=== PATIENT | female | born 1965 | race Caucasian/White ===

== ENCOUNTER 2018-10-16 17:40 | Emergency (ER) | payer OTHER ==
--- OUTSIDE RECORDS SUMMARY | 2018-10-16 17:53 | XMS REPORT | Continuity of Care Document ---
:1965 External Reference #:[id number] Author Name Tai Coombs DO MPH Address [address] [place] [address], [address] [place] [address] Care Team Providers Name Role Phone Devin Back M.D. Care Team Information Can Line Operator Unavailable Devin Back M.D. Primary Care Physician Unavailable Payers Date Identification Numbers Payment Provider Subscriber Policy Number: [id number] For Life Angeles Dos Santos PayID: [id number] [address] [place] [address] Family History Date Family Member(s) Observation Comments Father due to COPD () Mother 70 Children 4 Social History Type Date Description Comments Sex Unknown Education Currently working on Associates Degree Lives With Spouse Lives With Daughters Sleep Typically sleeps 6 hours a night Pets 2 dogs Pets 3 cats Occupation Unemployed Work Status Not Currently Working Hand Dominance Right-handed Cigarette Use Current Cigarette Smoker 1-5 Cigarettes Daily ETOH Use Denies alcohol use Tobacco Use Start: Unknown Patient is a current smoker, smokes some days Smoking Status Reviewed: 10/03/18 Patient is a current smoker, smokes some days Smoke Alarms Yes smoke alarm Allergies, Adverse Reactions, Alerts Active Allergies Reaction Severity Comments Date Zoloft 07/20/2016 Medications Active Medications SIG Qnty Indications Ordering Date Provider Cyclobenzaprine HCL 1 by mouth every 30tabs Tai Coombs, 04/01/2018 10mg night as DO, MPH Tablets directed Oxycodone HCL si by mouth 100tabs Tai Coombs, 12/31/2017 5mg Tablets every 4 to 6 DO, MPH hours as directed chronic pain patient Multiple Unknown Vitamin/Minerals/No Iron Tablets Tumeric 1 By Mouth Daily Unknown Capsules Famotidine si by mouth Unknown 20mg Tablets twice a day as directed Iron 100/C 1 by mouth daily Unknown 100-250mg Tablets History Medications Oxycodone HCL si by mouth 90tabs Tai Coombs, 07/20/2016 - 5mg every 8 hours as VELIA MCCLOUD 12/31/2017 Tablets directed chronic pain patient. Ventolin HFA 2 puffs as needed Unknown - every 8 hours for 07/20/2016 108(90Base) mcg/Act shortness for Aerosol breath Hydrocodone-Acetamino take one by mouth Unknown - phen every 6 hours as 07/20/2016 7.5-325mg Tablets directed chronic pain. fill under workman's compensation. Ibuprofen si po q4h 120tabs Unknown - 600mg Tablets 04/01/2018 Amoxicillin si by mouth Unknown - 500mg three times a day 08/17/2016 Tablets Vital Signs Date Vital Result Comment 10/03/2018 3:56pm BP Systolic 132 mmHg BP Diastolic 80 mmHg Heart Rate 84 /min Respiratory Rate 20 /min Height 58 inches 4'10" Weight 171.00 lb Pain Level 9 Pain at this time. Pain Level With Medicine 8 on average with meds Pain Level Without Medicine 9 02/20 without meds Pain Level After Procedure 7 BP Systolic Recheck 140 mmHg Pulse: 80 BP Diastolic Recheck 86 mmHg Pulse: 80 BMI (Body Mass Index) 35.7 kg/m2 09/02/2018 3:55pm BP Systolic 128 mmHg BP Diastolic 78 mmHg Heart Rate 74 /min Respiratory Rate 20 /min Height 58 inches 4'10" Weight 172.00 lb Pain Level 7 Pain at this time. Pain Level With Medicine 6 on average with meds Pain Level Without Medicine 9 without meds BMI (Body Mass Index) 35.9 kg/m2 07/31/2018 3:47pm BP Systolic 128 mmHg BP Diastolic 82 mmHg Heart Rate 80 /min Respiratory Rate 20 /min Height 58 inches 4'10" Weight 172.00 lb Pain Level 8 Pain at this time. Pain Level With Medicine 6 on average with meds Pain Level Without Medicine 10 02/20 without meds BMI (Body Mass Index) 35.9 kg/m2 06/26/2018 3:23pm BP Systolic 126 mmHg BP Diastolic 78 mmHg Heart Rate 74 /min Respiratory Rate 20 /min Height 58 inches 4'10" Weight 172.00 lb Pain Level 8 Pain at this time. Pain Level With Medicine 7 on average with meds Pain Level Without Medicine 10 02/20 without meds BMI (Body Mass Index) 35.9 kg/m2 05/28/2018 3:31pm BP Systolic 130 mmHg BP Diastolic 78 mmHg Heart Rate 72 /min Respiratory Rate 20 /min Height 58 inches 4'10" Weight 172.00 lb Pain Level 7 Pain at this time. Pain Level With Medicine 6 on average with meds Pain Level Without Medicine 10 02/20 without meds Pain Level After Procedure 5 BP Systolic Recheck 132 mmHg Pulse: 74 BP Diastolic Recheck 84 mmHg Pulse: 74 BMI (Body Mass Index) 35.9 kg/m2 04/29/2018 3:54pm BP Systolic 128 mmHg BP Diastolic 80 mmHg Heart Rate 74 /min Respiratory Rate 20 /min Height 58 inches 4'10" Weight 171.00 lb Pain Level 7 Pain at this time. Pain Level With Medicine 6 on average with meds Pain Level Without Medicine 10 02/20 without meds BMI (Body Mass Index) 35.7 kg/m2 04/01/2018 3:28pm BP Systolic 122 mmHg BP Diastolic 74 mmHg Heart Rate 76 /min Respiratory Rate 20 /min Height 58 inches 4'10" Weight 170.00 lb Pain Level 7 Pain at this time. Pain Level With Medicine 7 on average with meds Pain Level Without Medicine 10 02/20 without meds BMI (Body Mass Index) 35.5 kg/m2 02/27/2018 3:32pm BP Systolic 128 mmHg BP Diastolic 84 mmHg Heart Rate 86 /min Respiratory Rate 20 /min Height 58 inches 4'10" Weight 170.00 lb Pain Level 9 Pain at this time. Pain Level With Medicine 7 on average with meds Pain Level Without Medicine 10 02/20 without meds Pain Level After Procedure 6 BP Systolic Recheck 132 mmHg Pulse: 94 BP Diastolic Recheck 88 mmHg Pulse: 94 BMI (Body Mass Index) 35.5 kg/m2 01/30/2018 3:38pm BP Systolic 130 mmHg BP Diastolic 84 mmHg Heart Rate 80 /min Respiratory Rate 20 /min Height 58 inches 4'10" Weight 170.00 lb Pain Level 9 Pain at this time. Pain Level With Medicine 8 on average with meds Pain Level Without Medicine 10 02/20 without meds BMI (Body Mass Index) 35.5 kg/m2 12/31/2017 3:48pm BP Systolic 122 mmHg BP Diastolic 72 mmHg Heart Rate 74 /min Respiratory Rate 20 /min Height 58 inches 4'10" Weight 178.00 lb Pain Level 7 Pain at this time. Pain Level With Medicine 6 on average with meds Pain Level Without Medicine 10 02/20 without meds BMI (Body Mass Index) 37.2 kg/m2 11/28/2017 3:56pm BP Systolic 120 mmHg BP Diastolic 74 mmHg Heart Rate 76 /min Respiratory Rate 20 /min Height 58 inches 4'10" Pain Level 6 Pain at this time. Pain Level With Medicine 6 on average with meds Pain Level Without Medicine 10 02/20 without meds 10/29/2017 3:47pm Respiratory Rate 20 /min Height 58 inches 4'10" Weight 182.00 lb Pain Level Without Medicine 10 02/20 without meds BMI (Body Mass Index) 38.0 kg/m2 10/03/2017 3:57pm BP Systolic 120 mmHg BP Diastolic 74 mmHg Heart Rate 76 /min Respiratory Rate 20 /min Height 58 inches 4'10" Weight 182.00 lb Pain Level 5 Pain at this time. Pain Level With Medicine 4 on average with meds Pain Level Without Medicine 10 02/20 without meds BMI (Body Mass Index) 38.0 kg/m2 08/27/2017 4:04pm BP Systolic 122 mmHg BP Diastolic 70 mmHg Heart Rate 74 /min Respiratory Rate 20 /min Height 58 inches 4'10" Weight 166.00 lb Pain Level 8 Pain at this time. Pain Level With Medicine 7 on average with meds Pain Level Without Medicine 10 02/20 without meds BMI (Body Mass Index) 34.7 kg/m2 07/25/2017 3:49pm BP Systolic 128 mmHg BP Diastolic 78 mmHg Heart Rate 74 /min Respiratory Rate 20 /min Height 58 inches 4'10" Weight 170.00 lb Pain Level 9 Pain at this time. Pain Level With Medicine 8 on average with meds Pain Level Without Medicine 10 02/20 without meds BMI (Body Mass Index) 35.5 kg/m2 06/25/2017 4:01pm BP Systolic 128 mmHg BP Diastolic 76 mmHg Heart Rate 74 /min Respiratory Rate 20 /min Height 58 inches 4'10" Weight 170.00 lb Pain Level 8 Pain at this time. Pain Level With Medicine 7 on average with meds Pain Level Without Medicine 10 02/20 without meds Pain Level After Procedure 6 BP Systolic Recheck 122 mmHg Pulse: 84 BP Diastolic Recheck 78 mmHg Pulse: 84 BMI (Body Mass Index) 35.5 kg/m2 05/29/2017 4:00pm BP Systolic 118 mmHg BP Diastolic 74 mmHg Heart Rate 72 /min Respiratory Rate 20 /min Height 58 inches 4'10" Weight 173.00 lb Pain Level 7 Pain at this time. Pain Level With Medicine 6 on average with meds Pain Level Without Medicine 10 02/20 without meds BMI (Body Mass Index) 36.2 kg/m2 04/25/2017 3:49pm BP Systolic 126 mmHg BP Diastolic 78 mmHg Heart Rate 80 /min Respiratory Rate 20 /min Height 58 inches 4'10" Weight 173.00 lb Pain Level 9 Pain at this time. Pain Level With Medicine 8 on average with meds Pain Level Without Medicine 10 02/20 without meds Pain Level After Procedure 7 BP Systolic Recheck 122 mmHg Pulse: 74 BP Diastolic Recheck 76 mmHg Pulse: 74 BMI (Body Mass Index) 36.2 kg/m2 03/28/2017 4:00pm BP Systolic 116 mmHg BP Diastolic 72 mmHg Heart Rate 74 /min Respiratory Rate 20 /min Height 58 inches 4'10" Weight 172.00 lb Pain Level 8 Pain at this time. Pain Level With Medicine 7 on average with meds Pain Level Without Medicine 10 02/20 without meds BMI (Body Mass Index) 35.9 kg/m2 02/26/2017 4:01pm BP Systolic 130 mmHg BP Diastolic 80 mmHg Heart Rate 72 /min Respiratory Rate 16 /min Height 58 inches 4'10" Weight 172.00 lb Pain Level 7 7/10, Pain at this time. Pain Level With Medicine 5 5/10, on average with meds Pain Level Without Medicine 10 02/20 without meds BMI (Body Mass Index) 35.9 kg/m2 01/16/2017 2:51pm BP Systolic 136 mmHg BP Diastolic 80 mmHg Heart Rate 76 /min Respiratory Rate 16 /min Height 58 inches 4'10" Weight 171.00 lb Pain Level 8 8/10, Pain at this time. Pain Level With Medicine 6 6/10, on average with meds Pain Level Without Medicine 10 02/20 without meds BMI (Body Mass Index) 35.7 kg/m2 12/19/2016 9:46am BP Systolic 136 mmHg BP Diastolic 80 mmHg Heart Rate 78 /min Respiratory Rate 16 /min Height 58 inches 4'10" Weight 170.00 lb Pain Level 8 8/10, Pain at this time. Pain Level With Medicine 6 6/10, on average with meds Pain Level Without Medicine 10 02/20 without meds BMI (Body Mass Index) 35.5 kg/m2 12/04/2016 3:07pm BP Systolic 122 mmHg BP Diastolic 70 mmHg Heart Rate 74 /min Respiratory Rate 20 /min Height 58 inches 4'10" Weight 171.00 lb Pain Level 7 Pain at this time. Pain Level With Medicine 6 on average with meds Pain Level Without Medicine 10 02/20 without meds Pain Level After Procedure 5 BP Systolic Recheck 128 mmHg Pulse: 76 BP Diastolic Recheck 74 mmHg Pulse: 76 BMI (Body Mass Index) 35.7 kg/m2 11/22/2016 3:20pm BP Systolic 138 mmHg BP Diastolic 80 mmHg Heart Rate 70 /min Respiratory Rate 16 /min Height 58 inches 4'10" Weight 175.00 lb Pain Level 6 6/10, Pain at this time. Pain Level With Medicine 6 610, on average with meds Pain Level Without Medicine 10 02/20 without meds BMI (Body Mass Index) 36.6 kg/m2 11/03/2016 12:42pm BP Systolic 128 mmHg BP Diastolic 78 mmHg Heart Rate 80 /min Respiratory Rate 20 /min Height 58 inches 4'10" Weight 167.00 lb Pain Level 7 Pain at this time. Pain Level With Medicine 6 on average with meds Pain Level Without Medicine 10 02/20 without meds Pain Level After Procedure 5 BP Systolic Recheck 122 mmHg Pulse: 74 BP Diastolic Recheck 72 mmHg Pulse: 74 BMI (Body Mass Index) 34.9 kg/m2 10/20/2016 2:19pm BP Systolic 128 mmHg BP Diastolic 70 mmHg Heart Rate 74 /min Respiratory Rate 18 /min Height 58 inches 4'10" Weight 167.00 lb Pain Level 7 Pain at this time. Pain Level With Medicine 6 on average with meds Pain Level Without Medicine 10 02/20 without meds BMI (Body Mass Index) 34.9 kg/m2 09/21/2016 2:13pm BP Systolic 126 mmHg BP Diastolic 70 mmHg Heart Rate 72 /min Respiratory Rate 20 /min Height 58 inches 4'10" Weight 173.00 lb Pain Level 7 Pain at this time. Pain Level With Medicine 6 on average with meds Pain Level Without Medicine 10 10/10 without meds BMI (Body Mass Index) 36.2 kg/m2 08/17/2016 2:42pm BP Systolic 126 mmHg BP Diastolic 80 mmHg Heart Rate 80 /min Respiratory Rate 16 /min Height 58 inches 4'10" Weight 169.00 lb Pain Level 5 5/10, Pain at this time. Pain Level With Medicine 5 5/10, on average with meds Pain Level Without Medicine 10 10/10 without meds BMI (Body Mass Index) 35.3 kg/m2 08/03/2016 3:25pm BP Systolic 140 mmHg BP Diastolic 80 mmHg Heart Rate 76 /min Respiratory Rate 16 /min Height 58 inches 4'10" Weight 170.00 lb Pain Level 3 3/10, Pain at this time. Pain Level With Medicine 3 3/10, on average with meds Pain Level Without Medicine 10 10/10 without meds BMI (Body Mass Index) 35.5 kg/m2 07/20/2016 3:14pm BP Systolic 124 mmHg BP Diastolic 78 mmHg Heart Rate 82 /min Respiratory Rate 20 /min Height 58 inches 4'10" Weight 170.00 lb Pain Level 6 6/10, Pain at this time. Pain Level With Medicine 6 6/10, on average with meds Pain Level Without Medicine 8 8/10 without meds BMI (Body Mass Index) 35.5 kg/m2 Procedures Date Code Description Status 06/26/2018 40224 Brief Emotional/Behav Assessment W/ Scoring Doc Per Completed Standard Inst 05/28/2018 96512 Injection For Nerve Block, Other Peripheral Nerve Or Completed Branch 05/28/201876012 Injection, Single Or Mutiple Trigger Points One Or Two Completed Muscles 05/28/201846239 Injection, Tendon Origin/Insertion Completed 05/28/201877752 Inject Tendon/Ligament Completed 02/27/2018 27012 Omt 3-4 Body Regions Completed 02/27/201839056 Arthrocentesis/Aspiration/Inj Of Major Joint Or Bursa W/ Completed Ultra 06/25/2017 83424 Omt 3-4 Body Regions Completed 06/25/2017 12154 Injection For Nerve Block, Other Peripheral Nerve Or Completed Branch 06/25/201793393 Injection, Single Or Mutiple Trigger Points One Or Two Completed Muscles 06/25/201767357 Injection, Tendon Origin/Insertion Completed 04/25/201754471 Inject Tendon/Ligament Completed 04/25/201765689 Inject Tendon/Ligament Completed 04/25/201798721 Inject Tendon/Ligament Completed 04/25/201774096 Inject Tendon/Ligament Completed 04/25/201701405 Injection, Tendon Origin/Insertion Completed 04/25/201747874 Injection, Tendon Origin/Insertion Completed 04/25/201722607 Injection, Single Or Mutiple Trigger Points One Or Two Completed Muscles 01/16/2017 07699 Therapeutic, Prophylactic Or Diagnostic Injection Subq/Im Completed 12/19/2016 13198 Therapeutic, Prophylactic Or Diagnostic Injection Subq/Im Completed 12/04/2016 95915 Injection For Nerve Block, Other Peripheral Nerve Or Completed Branch 11/22/2016 00747 Omt 3-4 Body Regions Completed 11/03/2016 48815 Injection For Nerve Block, Other Peripheral Nerve Or Completed Branch 11/03/201696905 Injection, Tendon Origin/Insertion Completed 11/03/2016 Injection, Tendon Origin/Insertion Completed Encounters Type Date Location Provider Dx Diagnosis Office Visit 09/02/2018 Main Office as Of Tai Coombs DO, G89.29 Other chronic pain 4:00p 06/14/13 MPH M54.16 Radiculopathy, lumbar region M54.6 Pain in thoracic spine M25.562 Pain in left knee M25.572 Pain in left ankle and joints of left foot 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 Office Visit 07/31/2018 4:15p Main Office as Tai Coombs G89.29 Other chronic Of 06/14/13 DO, MPH pain M54.16 Radiculopathy, lumbar region M54.6 Pain in thoracic spine M79.18 Myalgia, other site 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 Office Visit 06/26/2018 3:45p Main Office as Tai Coombs G89.29 Other chronic Of 06/14/13 DO, MPH pain M54.6 Pain in thoracic spine M54.16 Radiculopathy, lumbar region M79.18 Myalgia, other site Z13.31 Encounter for screening for depression Z79.891 assisted (current) use of opiate analgesic Office Visit 05/28/2018 3:30p Main Office as Tai Coombs G89.29 Other chronic Of 06/14/13 DO, MPH pain M54.6 Pain in thoracic spine M54.16 Radiculopathy, lumbar region M65.88 Other synovitis and tenosynovitis, other site M79.18 Myalgia, other site M46.07 Spinal enthesopathy, lumbosacral region Z79.891 assisted (current) use of opiate analgesic Office Visit 04/29/2018 3:45p Main Office as Tai Coombs G89.29 Other chronic Of 06/14/13 DO, MPH pain M54.6 Pain in thoracic spine M54.16 Radiculopathy, lumbar region 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 Office Visit 04/01/2018 3:30p Main Office as Tai Coombs G89.29 Other chronic Of 06/14/13 DO, MPH pain M54.6 Pain in thoracic spine M54.16 Radiculopathy, lumbar region M25.552 Pain in left hip M25.551 Pain in right hip 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 Office Visit 02/27/2018 4:00p Main Office as Tai Coombs G89.29 Other chronic Of 06/14/13 DO, MPH pain M54.6 Pain in thoracic spine M54.16 Radiculopathy, lumbar region M99.03 Segmental and somatic dysfunction of lumbar region M53.3 Sacrococcygeal disorders, not elsewhere classified M99.04 Segmental and somatic dysfunction of sacral region M25.552 Pain in left hip M25.551 Pain in right hip M99.05 Segmental and somatic dysfunction of pelvic region 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 Office Visit 01/30/2018 3:45p Main Office as Tai Coombs G89.29 Other chronic Of 06/14/13 DO, MPH pain M54.6 Pain in thoracic spine M54.16 Radiculopathy, lumbar region M54.5 Low back pain 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 Office Visit 12/31/2017 4:00p Main Office as Tai Coombs G89.29 Other chronic Of 06/14/13 DO, MPH pain M54.5 Low back pain M54.16 Radiculopathy, lumbar region M54.6 Pain in thoracic spine 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 Office Visit 11/28/2017 4:15p Main Office as Tai Coombs G89.29 Other chronic Of 06/14/13 DO, MPH pain M54.6 Pain in thoracic spine M54.5 Low back pain M54.16 Radiculopathy, lumbar region Z79.891 assisted (current) use of opiate analgesic Office Visit 10/29/2017 3:45p Main Office as Tai Coombs G89.29 Other chronic Of 06/14/13 DO, MPH pain M54.6 Pain in thoracic spine M54.5 Low back pain M54.16 Radiculopathy, lumbar region M65.88 Other synovitis and tenosynovitis, other site Z79.891 assisted (current) use of opiate analgesic Office Visit 10/03/2017 3:30p Main Office as Tai Coombs G89.29 Other chronic Of 06/14/13 DO, MPH pain M54.6 Pain in thoracic spine M54.5 Low back pain M54.16 Radiculopathy, lumbar region M79.1 Myalgia 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 Office Visit 08/27/2017 3:30p Main Office as Tai Coombs G89.29 Other chronic Of 06/14/13 DO, MPH pain M54.5 Low back pain M54.16 Radiculopathy, lumbar region M54.6 Pain in thoracic spine 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 Office Visit 07/25/2017 4:15p Main Office as Tai Coombs G89.29 Other chronic Of 06/14/13 DO, MPH pain M54.5 Low back pain M79.1 Myalgia M54.16 Radiculopathy, lumbar region Z79.891 assisted (current) use of opiate analgesic Office Visit 06/25/2017 3:30p Main Office as Tai Coombs G89.29 Other chronic Of 06/14/13 DO, MPH pain M54.5 Low back pain M79.1 Myalgia M65.88 Other synovitis and tenosynovitis, other site M46.07 Spinal enthesopathy, lumbosacral region M54.16 Radiculopathy, lumbar region M99.03 Segmental and somatic dysfunction of lumbar region M54.6 Pain in thoracic spine M99.02 Segmental and somatic dysfunction of thoracic region M25.551 Pain in right hip M99.05 Segmental and somatic dysfunction of pelvic region Z79.891 assisted (current) use of opiate analgesic Office Visit 05/29/2017 3:45p Main Office as Tai Coombs G89.29 Other chronic Of 06/14/13 DO, MPH pain M54.5 Low back pain M79.1 Myalgia Z79.891 assisted (current) use of opiate analgesic F17.210 Nicotine dependence, cigarettes, uncomplicated Office Visit 04/25/2017 3:45p Main Office as Tai Coombs G89.29 Other chronic Of 06/14/13 DO, MPH pain M51.26 Other intervertebral disc displacement, lumbar region M54.5 Low back pain M79.1 Myalgia M65.88 Other synovitis and tenosynovitis, other site M46.07 Spinal enthesopathy, lumbosacral region Z79.891 assisted (current) use of opiate analgesic Office Visit 03/28/2017 4:00p Main Office as Tai Coombs G89.29 Other chronic Of 06/14/13 DO, MPH pain M54.5 Low back pain M51.26 Other intervertebral disc displacement, lumbar region M54.16 Radiculopathy, lumbar region Z79.891 assisted (current) use of opiate analgesic Office Visit 02/26/2017 3:45p Main Office as Ena Griffin G89.29 Other chronic Of 06/14/13 [employer]IVE pain M51.26 Other intervertebral disc displacement, lumbar region M54.5 Low back pain M54.16 Radiculopathy, lumbar region Z79.891 assisted (current) use of opiate analgesic Office Visit 01/16/2017 2:15p Main Office as Ena Griffin G89.29 Other chronic Of 06/14/13 [employer]ENT [employer]IVE pain M54.5 Low back pain M48.06 Spinal stenosis, lumbar region M51.26 Other intervertebral disc displacement, lumbar region M54.16 Radiculopathy, lumbar region R53.83 Other fatigue Z71.89 Other specified counseling Z79.891 assisted (current) use of opiate analgesic Office Visit 12/19/2016 9:30a Main Office as Ena Griffin G89.29 Other chronic Of 06/14/13 [employer]ENT [employer]IM[employer]IVE pain M51.26 Other intervertebral disc displacement, lumbar region M48.06 Spinal stenosis, lumbar region M54.5 Low back pain M54.16 Radiculopathy, lumbar region R53.83 Other fatigue Z71.89 Other specified counseling 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 Office Visit 12/04/2016 3:00p Main Office as Tai Coombs G89.29 Other chronic Of 06/14/13 DO, MPH pain M51.26 Other intervertebral disc displacement, lumbar region M54.5 Low back pain M48.06 Spinal stenosis, lumbar region M54.16 Radiculopathy, lumbar region Z79.891 assisted (current) use of opiate analgesic Office Visit 11/22/2016 3:15p Main Office as Ena Griffin G89.29 Other chronic Of 06/14/13 VI[employer]ENT [employer]IM[employer]ECTIVE pain M51.26 Other intervertebral disc displacement, lumbar region M54.5 Low back pain M48.06 Spinal stenosis, lumbar region M54.16 Radiculopathy, lumbar region M99.03 Segmental and somatic dysfunction of lumbar region M54.6 Pain in thoracic spine M99.02 Segmental and somatic dysfunction of thoracic region M54.2 Cervicalgia M99.01 Segmental and somatic dysfunction of cervical region Z71.89 Other specified counseling Z79.891 assisted (current) use of opiate analgesic Office Visit 11/03/2016 2:15p Main Office as Tai Coombs G89.29 Other chronic Of 06/14/13 DO, MPH pain M54.5 Low back pain M51.26 Other intervertebral disc displacement, lumbar region Z98.84 Bariatric surgery status M48.06 Spinal stenosis, lumbar region M46.07 Spinal enthesopathy, lumbosacral region M54.16 Radiculopathy, lumbar region Office Visit 10/20/2016 2:15p Main Office as Tai Coombs G89.29 Other chronic Of 06/14/13 DO, MPH pain M54.5 Low back pain M51.26 Other intervertebral disc displacement, lumbar region Z98.84 Bariatric surgery status M48.06 Spinal stenosis, lumbar region 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 Office Visit 09/21/2016 2:30p Main Office as Tai Coombs G89.29 Other chronic Of 06/14/13 DO, MPH pain M54.5 Low back pain M51.26 Other intervertebral disc displacement, lumbar region 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 Z98.84 Bariatric surgery status Office Visit 08/17/2016 2:30p Main Office as Ena Griffin G89.29 Other chronic Of 06/14/13 [employer] pain M51.26 Other intervertebral disc displacement, lumbar region M54.5 Low back pain M48.06 Spinal stenosis, lumbar region 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 Office Visit 08/03/2016 3:15p Main Office as Ena Griffin G89.29 Other chronic Of 06/14/13 [employer]ENT [employer]IVE pain M48.06 Spinal stenosis, lumbar region M51.26 Other intervertebral disc displacement, lumbar region M54.5 Low back pain Z71.89 Other specified counseling Office Visit 07/20/2016 2:00p Main Office as Tai Coombs G89.29 Other chronic Of 06/14/13 DO, MPH pain M51.26 Other intervertebral disc displacement, lumbar region M48.06 Spinal stenosis, lumbar region Z98.84 Bariatric surgery status K25.9 Gastric ulcer, unsp as acute or chronic, w/o hemor or perf Z71.3 Dietary counseling and surveillance Z71.89 Other specified counseling 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 Symptoms and complaints discussed and reviewed today. No significant changes in physical findings. Continue current medical pain management.M54.16 Radiculopathy, lumbar regionComments:Chronic. Symptoms and complaints discussed and reviewed today. No changes in physical findings; patient is stable on current medical therapy.M54.6 Pain in thoracic spineComments:Chronic.Symptoms and complaints discussed and reviewed today. No significant changes in physical findings. Continue current medical pain management.M25.572 Pain in left ankle and joints of left footComments:Chronic. Symptoms and complaints discussed and reviewed today. No significant changes in physical findings. Continue current medical pain management.M65.88 Other synovitis and tenosynovitis, other siteComments:Chronic. Symptoms and complaints discussed and reviewed today. Physical findings reviewed and warrant intervention. Continue current medical pain management. Injection therapy today - tendon sheath. Informed consent given/refusal reviewed. See procedure sheet.M46.06 Spinal enthesopathy, lumbar regionComments: Chronic. Symptoms and complaints discussed and reviewed today. Physical findings reviewed and warrant intervention. Patient is stable and comfortable with current medical therapy. Injection therapytoday.Tendon I/O injections performed. See procedure sheet.M79.18 Myalgia, other siteComments:Injection therapy today - Trigger Point injections. Informed consent given/refusal reviewed. See procedure sheet.Z79.891 assisted (current) use of opiate analgesicNew Labs:Urine Drug Screen, Ordered: 10/03/18Comments:Urine drug screen sample taken today to monitor opiate use and to monitor use of illicit substances.Will discuss results at next appointment.The following tests were ordered:6 AM, AMPH, SOLE, SHASHANK, BUP, CARIS, COCM, COT, ETG, FENT, MCSHSG, OPI, OXY, PCP, TAPEN, XTSY, ZOLP. A urine drug test (UDT) was ordered for this patient and collected on site today. Creatinine has been ordered as well for specimen validity, not for kidney function. Preliminary UDT results are not final and should not be used to determine patient care or plan of treatment. Initially a qualitative immunoassay screen will be done. Any inconsistent or positive findings will be further tested with a more comprehensive quantitative confirmation LCMS study. It is part of the treatment process of prescribing controlled substances and is considered standard of care.AllComments:All above symptoms and complaints discussed as well as diagnoses reviewed.Continue trial of opioid pain management - note changes below; injection therapy, osteopathic manipulation ( OMT), PT / modalities, and consults as needed to manage chronic pain.Side effects discussed; anticipatory guidance given. Patient clearly understands and agrees with all medical treatments and suggestions. All medicines prescribed are adequate and appropriate for this patient's complaint of pain, medical history, physical, and personal goals.Goals of Treatment are to provide adequate and appropriate multidisciplinary medical pain management to increase/ maintain patient's quality of life and functionality while maintaining satisfactory side effect profile and minimizing almond blancher hand end-organ damage. Activity as toleratedContinue with PCP
--- OUTSIDE RECORDS SUMMARY | 2018-10-16 17:53 | XMS REPORT | Continuity of Care Document ---
:1965 External Reference #:[id number] Author Name Heather Mireles Care Team Providers Name Role Phone Devin Back MD Primary Care Physician Unavailable Payers Date Identification Numbers Payment Provider Subscriber Policy Number: [id number] [facility] Anand Dos Santos PayID: [id number] [address] [place] [address] Problems Active Problems Provider Date Degeneration of lumbar intervertebral disc [place] M.D. Onset: 2015 Family History Date Family Member(s) Observation Comments General No Current Problems Social History Type Date Description Comments Sex Unknown Occupation Currently Working Occupation [employer] Use Denies alcohol use Tobacco Use Start: Unknown Patient is a current smoker, smokes every day Recreational Drug Use Denies Drug Use Tobacco Use Start: Unknown Light tobacco smoker (10 or fewer cigarettes/day) Smoking Status Reviewed: 10/08/18 Light tobacco smoker (10 or fewer cigarettes/day) Allergies, Adverse Reactions, Alerts Description No Known Drug Allergies Medications Active Medications SIG Qnty Indications Ordering Provider Date Ibuprofen as needed Unknown 200mg Capsules Cyclobenzaprine HCL Coombs, Tai, DO 10mg Tablets Oxycodone HCL Coombs, Tai, DO 5mg Tablets Tumeric Unknown Vital Signs Date Vital Result Comment 10/08/2018 10:20am Height 58 inches 4'10" Weight 162.00 lb BP Systolic 122 mmHg BP Diastolic 67 mmHg Respiratory Rate 16 /min Pain Level 7 BMI (Body Mass Index) 33.9 kg/m2 08/11/2015 10:02am Height 58 inches 4'10" Weight 178.00 lb Heart Rate 82 /min BP Systolic Sitting 140 mmHg BP Diastolic Sitting 90 mmHg Pain Level 650 BMI (Body Mass Index) 37.2 kg/m2 Encounters Type Date Location Provider Dx Diagnosis Office Visit 08/11/2015 [facility] [place], M51.36 Other intervertebral 10:[facility]a [facility] disc degeneration, lumbar region Plan of Treatment 10/08/2018 - Zana Vázquez M.D.M25.572 Pain in left ankle and joints of left footNew Xrays:Ankle Left 3+VWS, Ordered: 10/08/18CT Extremity Lower Left Wo, Ordered: 10/08/18Follow up:after testing is satxdnubsQ47.072 Primary osteoarthritis, left ankle and foot
[2018-10-16 18:00] VITALS: BP 129/76
--- NOTE | 2018-10-16 18:22 | UC ---
Respiratory Complaint HPI - HPI Summary HPI Summary: 52-year-old female comes in with a chief complaint of 5-6 days of upper respiratory tract infection symptoms. She reports she denies chest congestion and decreased wheezing. She reports that she gets asthma symptoms whenever she sick. She reports green sputum. No fevers measured. She's been using over-the -counter medications which do help some of the symptoms. She also reports she' s had bad scalp irritation all winter long she's been using head and shoulders shampoo is not really getting any better. - History of Current Complaint Chief Complaint: UCGeneralIllness Stated Complaint: COUGH, CONGESTION Time Seen by Provider: 10/16/18 17:50 Hx Last Menstrual Period: NOW Pain Intensity: 5 - Allergies/Home Medications Allergies/Adverse Reactions: Allergies Allergy/AdvReac Type Severity Reaction Status Date / Time No Known Allergies Allergy Verified 10/16/18 18:00 Home Medications: Home Medications Oxycodone HCl 5 mg PO Q4HR PRN 10/16/18 [History Confirmed 10/16/18] PMH/Surg Hx/FS Hx/Imm Hx Previously Healthy: Yes - Surgical History Surgical History: Yes Surgery Procedure, Year, and Place: GB 2007. hernia repair. ulcers. GASTRIC BYPASS. total shoulder replacement - Family History Known Family History: Positive: Non-Contributory - Social History Alcohol Use: Weekly Substance Use Type: None Smoking Status (MU): Light Every Day Tobacco Smoker Review of Systems All Other Systems Reviewed And Are Negative: Yes Constitutional: Positive: Negative Skin: Positive: Other - SEE HPI Eyes: Positive: Negative ENT: Positive: Sore Throat, Ear Ache, Nasal Discharge, Sinus Congestion Respiratory: Positive: Cough, Other - SEE HPI Cardiovascular: Positive: Negative Gastrointestinal: Positive: Negative Motor: Positive: Negative Neurovascular: Positive: Negative Musculoskeletal: Positive: Negative Neurological: Positive: Negative Psychological: Positive: Negative Is Patient Immunocompromised?: No Physical Exam Triage Information Reviewed: Yes Appearance: No Pain Distress, Well-Nourished, Ill-Appearing - MILD Vital Signs: Initial Vital Signs Temp 97.4 F 10/16/18 17:53 Pulse 81 10/16/18 17:53 Resp 16 10/16/18 17:53 BP 129/76 10/16/18 17:53 Pulse Ox 97 10/16/18 17:53 Vital Signs Reviewed: Yes Eye Exam: Normal Eyes: Positive: Conjunctiva Clear ENT: Positive: Pharyngeal erythema, Nasal congestion, Nasal drainage, TMs normal Neck exam: Normal Neck: Positive: Supple, Nontender Respiratory: Positive: Lungs clear, Normal breath sounds, No respiratory distress Cardiovascular: Positive: RRR Musculoskeletal Exam: Normal Musculoskeletal: Positive: Strength Intact, ROM Intact Neurological Exam: Normal Neurological: Positive: Alert, Muscle Tone Normal Psychological Exam: Normal Psychological: Positive: Age Appropriate Behavior Skin: Positive: Other - FLAKING RASH ON SCALP Respiratory Course/Dx - Course Course Of Treatment: DISCUSSED VIRAL VERSES BACTERIAL INFECTION AND THE ROLE OF ANTIBIOTICS. THE PATIENT PREFERS TO BE ON ANTIBIOTICS AT THIS TIME. - Differential Dx/Diagnosis Provider Diagnosis: Bronchitis with bronchospasm, Seborrhea capitis in adult Discharge - Sign-Out/Discharge Documenting (check all that apply): Patient Departure All imaging exams completed and their final reports reviewed: No Studies - Discharge Plan Condition: Stable Disposition: HOME Prescriptions: Albuterol HFA INHALER* [Ventolin HFA Inhaler*] 2 puff INH Q4H PRN #1 mdi PRN Reason: Wheezing Amoxicillin/Clavulanate TAB* [Augmentin TAB 875*] 875 mg PO BID #20 tab Ketoconazole 1 applic TOPICAL DAILY #15 gm Mupirocin 1 applic TOPICAL BID #22 gm Patient Education Materials: Acute Bronchitis (ED), Bronchospasm (ED), Seborrheic Dermatitis (DC) Referrals: Devin Back MD [Primary Care Provider] - Additional Instructions: FOLLOW UP WITH YOUR DOCTOR IF NOT COMPLETELY IMPROVED. USE BOTH THE KETOCONAZOLE AND MUPIROCIN DIRECTED WITH SELSUN BLUE SHAMPOO DIRECTED. GET RECHECKED SOONER IF YOUR CONDITION WORSENS OR ANY QUESTIONS OR CONCERNS. - Billing Disposition and Condition Condition: STABLE Disposition: Home
== END 2018-10-16 18:34 | disposition home or self-care (01) ==
LOC: UCCORT 17:40
DX: J40 Bronchitis, not specified as acute or chronic (principal); L21.0 Seborrhea capitis; F17.210 Nicotine dependence, cigarettes, uncomplicated
CPT/HCPCS: 99212; G0463

== ENCOUNTER 2019-06-23 05:29 | Day surgery (SDC) | payer OTHER ==
[~2019-06-23 05:29] MED LIST: Buffered Lidocaine 1% SYRIN* 1 ML/SYRINGE INTRADERM ONE
[2019-06-23] MEDS ORDERED: Lactated Ringers 1000 ML Bag* 1,000 ML IV SCH (06:00)
[2019-06-23] MEDS ORDERED: ceFAZolin 2 GM PREMIX in ORs 2 GM/50 ML BAG ONE (06:02)
[2019-06-23] MEDS ORDERED: Bupivacaine 0.5% W/EPI SDV* 10 ML VIAL INJ ONE (07:06)
[2019-06-23] MEDS ORDERED: Bupivacaine 0.5%* 50 ML MDV VIAL ONE (07:06)
[2019-06-23] MEDS ORDERED: fentaNYL* 50 MCG/ML 2 ML VIAL (100 MCG VIAL) ONE ×2 (07:08→08:04)
[2019-06-23] MEDS ORDERED: Midazolam* 1 MG/ML 2 ML VIAL (2 MG) ONE (07:08)
[2019-06-23] MEDS ORDERED: Dexamethasone IV* 4 MG/ML 1 ML (4 MG) ONE (08:00)
[2019-06-23] MEDS ORDERED: Lidocaine 2% PF * 5 ML VIAL ONE (08:00)
[2019-06-23] MEDS ORDERED: Ondansetron INJ* 2 MG/ML VIAL ONE (08:00)
[2019-06-23] MEDS ORDERED: Propofol* 10 MG/ML 20 ML BTL ONE (08:00)
[2019-06-23] MEDS ORDERED: Naloxone* 0.4 MG/ML 1 ML VIAL IV PRN (08:12)
[2019-06-23] MEDS: HYDROmorphone INJ1* 1 MG/ML SYRINGE IV PRN ×2 (08:35→08:45)
[2019-06-23] MEDS ORDERED: HYDROmorphone INJ1* 1 MG/ML SYRINGE ONE ×2 (08:37→08:53)
[2019-06-23] MEDS ORDERED: HYDROmorphone INJ1* 1 MG/ML SYRINGE IV PRN (08:53)
[2019-06-23] MEDS ORDERED: oxyCODONE TAB* 5 MG TAB PO PRN (08:53)
[2019-06-23] MEDS ORDERED: oxyCODONE TAB* 5 MG TAB ONE (09:06)
[2019-06-23 10:09] VITALS: BP 155/87
--- NOTE | 2019-06-24 02:47 | OP ---
DATE OF OPERATION: 06/23/19 - [facility] DATE OF : 63 SURGEON: Dr. Zana Vázquez. VEST MAKER: Cristiano Gonzalez PA-C PRE-OP DIAGNOSIS: Left triple arthrodesis with hindfoot valgus. POST-OP DIAGNOSIS: Left triple arthrodesis with hindfoot valgus. OPERATIVE PROCEDURE: Displacement of medial side left calcaneus. DESCRIPTION OF PROCEDURE: The patient was taken to the operating room where lateral positioning was used. We opened up the lateral hindfoot along the line parallel to the peroneal tendons, which were subluxed dorsally. Microsagittal saw was used to divide the calcaneus from lateral to medial and then opened with two blunt osteotomes and a lamina roll tube setter. We were able to displace the calcaneus 4 cm medially, pinning it with 70 mm cannulated screw from the heel up to the sinus tarsi area. Fixation was good, verified with C-arm. We then irrigated thoroughly, closing the lateral wound with 2-0 Monocryl, sukhjinder for the skin, and a compression dressing applied. We elected not to approach the dorsal midfoot spurs as these could be easily seen at a later date when we do the ankle replacement. [id number]/[facility] #: [id number] MTDDeshaun
== END 2019-06-23 09:45 | disposition home or self-care (01) ==
LOC: OR 05:29
PROVIDERS: ATTEND Orthopaedic Surgery
DX: M21.072 Valgus deformity, not elsewhere classified, left ankle (principal); M19.072 Primary osteoarthritis, left ankle and foot; J45.909 Unspecified asthma, uncomplicated; F41.9 Anxiety disorder, unspecified; M19.90 Unspecified osteoarthritis, unspecified site; G89.29 Other chronic pain
CPT/HCPCS: A9270-GY; C1713; J0690; J1100; J1170; J2250; J2405; J2704; J3010; J3490